=== PATIENT | female | born 1990 | race Caucasian/White ===

== ENCOUNTER → 2021-04-22 | Emergency (ER) | payer OTHER ==
[~2021-04-22] VITALS: Ht 165.1 cm; Wt 102.1 kg
[~2021-04-22] MED LIST: CASIRIVIMAB/IMDEVIMAB 10 ML VIAL IV ONE; CASIRIVIMAB/IMDEVIMAB 600 ML in SODIUM CHLORIDE 0.9% 100 ML IV ONE
[2021-04-22 16:17] VITALS: BP 122/88
== END | disposition home or self-care (01) ==
LOC: ER 14:45
DX: R50.9 Fever, unspecified (principal); R05 Cough; U07.1 COVID-19
CPT/HCPCS: 99283